=== PATIENT | female | born 1990 | race African-American/Black ===

== ENCOUNTER 2018-04-07 19:34 | Emergency (ER) | payer BC, OTHER ==
[~2018-04-07] VITALS: Ht 167.6 cm; Wt 99.8 kg
[~2018-04-07 19:34] MED LIST: BACTRIM DS TAB1 EACH PO; FLEXERIL PO; HYDROCORTISONE3011 TOP; KEFLEX500 M1 PO; METFORMIN HCL500 MG PO; MOBIC15 MG PO; NOHOMEMEDICATIONS; NORCO 5-325 TA1 EACH PO; NORFLEX100 MG PO; PREDNISONE50 MG PO
[2018-04-07 19:47] VITALS: BP 158/104
[2018-04-07] MEDS ORDERED: JANUVIA100 MG PO (19:54)
[2018-04-07] MEDS ORDERED: NAPROSYN500 MG PO (20:03)
== END 2018-04-07 20:20 | disposition home or self-care (01) ==
LOC: ER 19:34
DX: S30.1XXA Contusion of abdominal wall, initial encounter (principal); E11.9 Type 2 diabetes mellitus without complications; W18.39XA Other fall on same level, initial encounter; Y93.89 Activity, other specified; Y92.89 Other specified places as the place of occurrence of the external cause; Y99.8 Other external cause status

== ENCOUNTER 2020-05-26 20:48 | Emergency (ER) | payer OTHER ==
[~2020-05-26] VITALS: Ht 160 cm; Wt 111.1 kg
[~2020-05-26 20:48] MED LIST changes: +JANUVIA100 MG PO; +NAPROSYN500 MG PO
[2020-05-26 21:55] LABS: URINE BILIRUBIN NEGATIVE (Negative); URINE BLOOD TRACE (Negative); URINE CLARITY SL CLOUDY; URINE COLOR YELLOW; URINE GLUCOSE-RANDOM* 2+ (Negative); URINE KETONES NEGATIVE (Negative); URINE NITRITE-REFLEX NEGATIVE (Negative); URINE PROTEIN (DIPSTICK) 1+ (Negative); URINE UROBILINOGEN 0.2 E.U./dl (0.2-1.0)
[2020-05-26 21:57] LABS: ABSOLUTE NEUTROPHILS 7.3 thou/uL (1.4-8.2); BASOPHILS 0.3 % (0.0-2.0); EOSINOPHILS 0.2 % (0.0-3.0); HEMATOCRIT 43.8 % (37.0-47.0); HEMOGLOBIN 14.5 gm/dL (12.0-15.0); LYMPHOCYTES 10.7 % (24.0-44.0); MCH 25.3 pg (26.0-34.0); MCHC 33.1 g/dL (28.0-37.0); MCV 76.5 fL (80.0-100.0); MONOCYTES 3.9 % (1.0-8.0); PLATELET COUNT 355 thou/uL (150-400); POLYS 84.9 % (36.0-66.0); RBC 5.72 mil/uL (4.20-5.00); RDW 14.7 % (10.5-14.5); WBC 8.6 thou/uL (4.0-11.0)
[2020-05-26 22:00] LABS: URINE LEUKOCYTES-REFLEX 2+ (Negative)
[2020-05-26 22:07] LABS: CASTS None Seen /LPF (None Seen); CRYSTALS None Seen /LPF (None Seen); SQUAMOUS 4-10 Moderate /LPF (0-3)
[2020-05-26 22:08] LABS: BACTERIA-REFLEX 1-9 Few /HPF (None Seen); URINE RBC 0-2 Rare /HPF (0-2); YEAST-REFLEX Present (None Seen)
[2020-05-26 22:09] LABS: CREATININE 0.8 mg/dL (0.6-1.0); POTASSIUM 4.4 mmol/L (3.5-5.1)
[2020-05-26 22:14] LABS: ALBUMIN 3.4 g/dL (3.4-5.0); TOTAL BILIRUBIN 0.8 mg/dL (0.2-1.0)
[2020-05-27] MEDS ORDERED: CIPROFLOXACIN500 M1 PO (01:39)
[2020-05-27] MEDS ORDERED: ZOFRAN ODT4 MG PO (01:39)
[2020-05-27] MEDS ORDERED: DIFLUCAN150 MG PO (01:39)
[2020-05-27 01:54] VITALS: BP 140/83
== END 2020-05-27 02:00 | disposition home or self-care (01) ==
LOC: ER 20:48
PROVIDERS: Emergency Medicine
DX: K52.9 Noninfective gastroenteritis and colitis, unspecified (principal); R11.2 Nausea with vomiting, unspecified; R10.84 Generalized abdominal pain; E11.9 Type 2 diabetes mellitus without complications; Z79.899 Other long term (current) drug therapy

== ENCOUNTER 2021-05-26 13:44 | Emergency (ER) | payer OTHER ==
[~2021-05-26] VITALS: Ht 160 cm; Wt 108.9 kg
[~2021-05-26 13:44] MED LIST changes: +CIPROFLOXACIN500 M1 PO; +DIFLUCAN150 MG PO; +ZOFRAN ODT4 MG PO
[2021-05-26 14:21] LABS: ABSOLUTE NEUTROPHILS 4.3 thou/uL (1.4-8.2); BASOPHILS 0.6 % (0.0-2.0); EOSINOPHILS 1.4 % (0.0-3.0); HEMATOCRIT 34.7 % (37.0-47.0); HEMOGLOBIN 10.9 gm/dL (12.0-15.0); LYMPHOCYTES 33.4 % (24.0-44.0); MCH 20.5 pg (26.0-34.0); MCHC 31.4 g/dL (28.0-37.0); MCV 65.2 fL (80.0-100.0); MONOCYTES 7.3 % (1.0-8.0); PLATELET COUNT 419 thou/uL (150-400); POLYS 57.3 % (36.0-66.0); RBC 5.32 mil/uL (4.20-5.00); RDW 17.8 % (10.5-14.5); WBC 7.5 thou/uL (4.0-11.0)
[2021-05-26 14:30] LABS: ANION GAP 7 mmol/L (7-16); BUN 11 mg/dL (7-18); CALCIUM 8.9 mg/dL (8.5-10.1); CHLORIDE 100 mmol/L (98-107); CO2 28 mmol/L (21-32); CREATININE 0.8 mg/dL (0.6-1.0); GLUCOSE 237 mg/dL (74-106); POTASSIUM 4.1 mmol/L (3.5-5.1); SODIUM 135 mmol/L (136-145)
[2021-05-26 14:39] LABS: ALBUMIN 3.4 g/dL (3.4-5.0); SGPT 28 U/L (14-59); TOTAL BILIRUBIN 0.3 mg/dL (0.2-1.0); TOTAL PROTEIN 7.8 g/dL (6.4-8.2); TROPONIN-I <0.06 ng/mL (<0.06)
[2021-05-26 14:50] LABS: SGOT 21 U/L (15-37)
[2021-05-26] MEDS ORDERED: MEDROLDOSEPACK PO (16:05)
[2021-05-26] MEDS ORDERED: METHOCARBAMOL500 M2 PO (16:05)
[2021-05-26 16:15] VITALS: BP 153/96
[2021-05-26 18:51] LABS: ANISOCYTOSIS 1+; HYPOCHROMASIA 3+; MICROCYTES 3+
== END 2021-05-26 16:16 | disposition home or self-care (01) ==
LOC: ER 13:44
PROVIDERS: Emergency Medicine
DX: E11.65 Type 2 diabetes mellitus with hyperglycemia (principal); M94.0 Chondrocostal junction syndrome [Tietze]